=== PATIENT | female | born 1990 | race Caucasian/White ===

== ENCOUNTER 2016-06-17 16:53 | Emergency (ER) | payer OTHER ==
[2016-06-17 17:48] VITALS: RESP 18; TEMP 98; O2SAT 98
--- NOTE | 2016-06-17 19:08 | C.PDOC ---
History Of Present Illness 26 y/o female complaining of right wrist pain for months, that worsened over the last three days. She complains that the pain presented spontaneously during her , deliver 1 month ago, and has persisted. Denies any change in sensation, trauma, or other complaint. Time Seen by Provider: 06/17/16 18:09 Chief Complaint (Nursing): Upper Extremity Problem/Injury History Per: Patient History/Exam Limitations: no limitations Onset/Duration Of Symptoms: Days Current Symptoms Are (Timing): Worse Quality: "Pain" Severity: Moderate Exacerbating Factor(s): Nothing Recent travel outside of the [place]: No Additional History Per: Patient Past Medical History Reviewed: Nursing Documentation, Vital Signs Vital Signs: Last Vital Signs Temp 98.0 F 06/17/16 17:45 Pulse 70 06/17/16 19:25 Resp 18 06/17/16 19:25 BP 120/72 06/17/16 19:25 Pulse Ox 98 06/17/16 19:25 Family History: States: Unknown Family Hx - Social History Hx Alcohol Use: No Hx Substance Use: No - Immunization History Hx Influenza Vaccination: No Review Of Systems Except As Marked, All Systems Reviewed And Found Negative. Musculoskeletal: Positive for: Hand Pain Physical Exam - Physical Exam Appears: Non-toxic, No Acute Distress Skin: Warm, Dry Oral Mucosa: Moist Respiratory: No Stridor, No Wheezing Extremity: Normal ROM, Tenderness (TTP radial aspect. Positive De Quervain's sign. ) Pulses: Right Radial: Normal ED Course And Treatment O2 Sat by Pulse Oximetry: 98 Medical Decision Making Medical Decision Making: XR Wrist - three view - reviewed and negative for fracture or dislocation. Patient placed in a wrist immobilizer by RN and instructed to follow up with Ortho. Disposition Doctor Will See Patient In The: Office Counseled Patient/Family Regarding: Studies Performed, Diagnosis, Need For Followup - Disposition Referrals: Jose Butcher III, MD [Staff Provider] - Disposition: HOME/ ROUTINE Disposition Time: 19:06 Condition: STABLE Additional Instructions: Rest, Ice and elevate the area. Follow up with orthopedic in 1-2 days for re- evaluation. Instructions: Tendinitis (ED) - Clinical Impression Clinical Impression: Tendinitis, de Quervain's - Scribe Statement The provider has reviewed the documentation as recorded by the Scribe Anila Dennison
[2016-06-17 19:26] VITALS: BP 120/72; PULSE 70
--- NOTE | 2016-06-18 14:05 | RAD ---
PROCEDURE: Right Wrist Radiographs. HISTORY: Pain COMPARISON: None. FINDINGS: BONES: Bone alignment and mineralization are normal. There is no acute fracture or bone destruction. JOINTS: The proximal and distal carpal rows are maintained. The joint spaces are normal. No dislocation. SOFT TISSUES: Normal. OTHER FINDINGS: None. IMPRESSION: No acute fracture or dislocation.
== END 2016-06-17 19:26 | disposition home or self-care (01) ==
LOC: C.ER 16:53
DX: M65.4 Radial styloid tenosynovitis [de Quervain] (principal)